=== PATIENT | female | born 1995 | race American Indian/Alaskan Native ===

== ENCOUNTER 2021-11-10 03:10 | Emergency (ER) | payer SELFPAY ==
[2021-11-10] MEDS ORDERED: PHENAZOPYRIDINE 200 MG TAB PO ONE (06:09)
--- NOTE | 2021-11-10 06:12 | Emergency Department Report ---
ED Abdominal Pain HPI - General Chief Complaint: Abdominal Pain Stated Complaint: ABD PRESSURE Time Seen by Provider: 11/10/21 05:56 Source: patient Mode of arrival: Ambulatory Limitations: No Limitations - History of Present Illness Initial Comments: Patient presents with a 2 to 3-day history of abdominal pressure. She describes a suprapubic pressure associated with lower back pain. Symptoms have been relatively constant. She has had pressure with urination. She states that it feels as though there is "a lump there." Patient has no cough or congestion. She has had no diarrhea but has had a single episode of emesis. She denies recent travel or trauma. Patient has had no sick contacts. She does not have any idea when her last menstrual cycle occurred. She does remember that it was "not normal." She cannot tell me how it was not normal. 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 She simply states that it was not her usual menstrual cycle. She does not know if she is or not. Patient has not taken anything for her symptoms. She just came in because of this. She states that the back pain is in the lower back on both sides. It is at the waistline. - Related Data Previous Rx's Medication Instructions Recorded Last Taken Type Ibuprofen [Motrin] 600 mg PO Q8H PRN #20 tablet 11/10/21 Unknown Rx Allergies Allergy/AdvReac Type Severity Reaction Status Date / Time No Known Allergies Allergy Unverified 09/01/13 14:57 ED Review of Systems ROS: Stated complaint: ABD PRESSURE Other details as noted in HPI Comment: All other systems reviewed and negative Constitutional: denies: fever Eyes: denies: vision change ENT: denies: epistaxis Respiratory: denies: cough Cardiovascular: denies: chest pain Endocrine: denies: unexplained weight loss Gastrointestinal: as per HPI Genitourinary: as per HPI Musculoskeletal: as per HPI Skin: denies: rash Neurological: denies: headache Hematological/Lymphatic: denies: easy bruising ED Past Medical Hx - Past Medical History Previous Medical History?: No Hx Psychiatric Treatment: No Additional medical history: migraines - Surgical History Past Surgical History?: Yes Additional Surgical History: c sectionx1 - Family History Family history: no significant - Social History Smoking Status: Current Some Day Smoker (We discussed tobacco cessation x3 minutes) - Medications Home Medications: Home Medications Medication Instructions Recorded Confirmed Last Taken Type Ibuprofen [Motrin] 600 mg PO Q8H PRN #20 tablet 11/10/21 Unknown Rx ED Physical Exam - General Limitations: No Limitations, Other (Pulse ox noted and normal) General appearance: alert, in no apparent distress - Head Head exam: Present: atraumatic, normocephalic - Eye Eye exam: Present: normal appearance, EOMI. Absent: scleral icterus - ENT ENT exam: Present: normal orophraynx, normal external ear exam - Neck Neck exam: Present: normal inspection. Absent: meningismus - Respiratory Respiratory exam: Present: normal lung sounds bilaterally. Absent: respiratory distress - Cardiovascular Cardiovascular Exam: Present: regular rate, normal rhythm - GI/Abdominal GI/Abdominal exam: Present: soft, tenderness (Suprapubic). Absent: distended, guarding, rebound - Extremities Exam Extremities exam: Present: normal capillary refill - Back Exam Back exam: Present: paraspinal tenderness (At the waistline bilaterally). Absent: CVA tenderness (R), CVA tenderness (L) - Neurological Exam Neurological exam: Present: alert, oriented X3, CN II-XII intact, normal gait, reflexes normal. Absent: motor sensory deficit - Psychiatric Psychiatric exam: Present: normal affect, normal mood - Skin Skin exam: Present: warm, dry ED Course Vital Signs 11/10/21 03:42 Temperature 98.3 F Pulse Rate 82 Respiratory 18 Rate Blood Pressure 114/70 O2 Sat by Pulse 100 Oximetry - Reevaluation(s) Reevaluation #1: 11/10/21 06:11 Labs and UA were ordered. Old records noted. Reevaluation #2: 11/10/21 07:54 Labs are noted. Patient was discharged. ED Medical Decision Making - Lab Data Result diagrams: 11/10/21 06:41 11/10/21 06:41 - Medical Decision Making Patient presents with low abdominal pain and back pain. Etiology for this is not known. She is not so ectopic is excluded. There is no evidence of urinary tract infection so pyelonephritis was excluded. Patient does not have hematuria suggestive of ureteral colic. There is no tenderness over McBurney's point to suggest appendicitis. She has had a regular menses and that could be contributing. She is referred to [facility] for recheck. Critical Care Time: No Critical care attestation.: If time is entered above; I have spent that time in minutes in the direct care of this critically ill patient, excluding procedure time. ED Disposition Clinical Impression: Lower abdominal pain Lower back pain Qualifiers: Chronicity: acute Back pain laterality: bilateral Sciatica presence: without sciatica Qualified Code(s): M54.50 - Low back pain, unspecified Disposition: 01 HOME / SELF CARE / HOMELESS Is pt being admited?: No Condition: Stable Instructions: Abdominal Pain (ED), Abdominal Pain, Adult, [id number], Pain Without a Known Cause Additional Instructions: Drink any fluids. Return for problems. Follow-up with your family doctor and your seed analysis laboratory assistant or the referral doctor. Prescriptions: Ibuprofen [Motrin] 600 mg PO Q8H PRN #20 tablet PRN Reason: Pain Referrals: PRIMARY CAREMD [Primary Care Provider] - 3-5 Days ASHELY SIDDIQUI MD [Staff Physician] - 3-5 Days
[2021-11-10 06:55] LABS: Hematocrit 37.3 % (30.3-42.9); Hemoglobin 12.2 gm/dl (10.1-14.3); Mean Corpuscular HGB Conc 33 % (30-34); Mean Corpuscular Volume 82 fl (79-97); Platelet Count 266 K/mm3 (140-440); Red Blood Count 4.54 M/mm3 (3.65-5.03); Red Cell Distribution Width 15.1 % (13.2-15.2)
[2021-11-10 07:09] LABS: Blood Urea Nitrogen 12 mg/dL (7-17); Calcium 8.9 mg/dL (8.4-10.2); Hemolysis Index 7
[2021-11-10 07:13] LABS: Bilirubin,Urine NEG (Negative); Blood,Urine NEG (Negative); Color,Urine Yellow (Yellow); Mucus,Urine FEW /HPF; Protein,Urine <15 mg/dL mg/dL (Negative); RBC,Urine < 1.0 /HPF (0.0-6.0); Urobilinogen,Urine < 2.0 mg/dL (<2.0)
[2021-11-10 07:23] LABS: BUN/Creatinine Ratio 20
[2021-11-10 08:08] VITALS: BP 121/59
== END 2021-11-10 08:27 | disposition home or self-care (01) ==
LOC: ED 03:10
DX: R10.30 Lower abdominal pain, unspecified (principal); M54.50 Low back pain, unspecified; F17.200 Nicotine dependence, unspecified, uncomplicated
CPT/HCPCS: 36415; 80048; 81001; 84702; 85027; 99283